=== PATIENT | female | born 1950 | race Asian ===

== ENCOUNTER 2017-07-14 10:38 | Day surgery (SDC) | payer BC ==
[~2017-07-14] VITALS: Ht 157.5 cm; Wt 66.2 kg
[2017-07-14] VITALS (7 sets, daily range): BP systolic 136–168; BP diastolic 69–84
[2017-07-14] MEDS ORDERED: BSS 500ml btl ONE (10:43)
[2017-07-14] MEDS ORDERED: Dexamethasone 4mg/ml vial ONE (10:44)
[2017-07-14] MEDS ORDERED: Kenalog-40 1ml Vial ONE (10:44)
[2017-07-14] MEDS ORDERED: Tetracaine 0.5% Opth 4ml Soln ONE (10:44)
[2017-07-14] MEDS ORDERED: Maxitrol Opth Oint 3.5gm ONE (10:44)
[2017-07-14] MEDS ORDERED: Lidocaine 2% MPF 5ml Vial INJ ONE (10:45)
[2017-07-14] MEDS ORDERED: Goniosol 2.5% Opth Soln - 15ml ONE (10:45)
[2017-07-14] MEDS ORDERED: EPINEPHrine 1mg/1ml Amp ONE (10:45)
[2017-07-14] MEDS ORDERED: BSS 15ml BTL ONE (10:45)
[2017-07-14] MEDS ORDERED: Povidone-Iodine 5% opth solution ONE (10:45)
[2017-07-14] MEDS ORDERED: Bupivacaine 0.75% 30ml vial INJ ONE (10:45)
[2017-07-14] MEDS ORDERED: Phenylephrine 2.5% Op 2ml Soln ONE (11:02)
[2017-07-14] MEDS ORDERED: Cyclopentolate 1% Opth Sol 2ml ONE (11:02)
[2017-07-14] MEDS: Cyclopentolate 1% Opth Sol 2ml RIGHT EYE SCH ×3 (11:08→11:20)
[2017-07-14] MEDS: Phenylephrine 2.5% Op 2ml Soln RIGHT EYE SCH ×3 (11:08→11:20)
[2017-07-14] MEDS ORDERED: ATORVASTATIN CA10 MG ORAL (11:25)
[2017-07-14] MEDS ORDERED: LEVOTHYROXINE125 MCG ORAL (11:25)
[2017-07-14] MEDS ORDERED: AMLODIPINE BESY10 MG ORAL (11:25)
[2017-07-14 11:46] LABS: BASOPHILS % (AUTO) 1.5 % (0.0-2.0); EOSINOPHILS % (AUTO) 2.9 % (0.0-3.0); LYMPHOCYTES % (AUTO) 42.9 % (20.0-45.0); MEAN CORPUSCULAR HEMOGLOBIN 31.8 PG (27.0-31.0); MEAN CORPUSCULAR HGB CONC 32.5 G/DL (32.0-36.0); MEAN CORPUSCULAR VOLUME 98 FL (80-99); MONOCYTES % (AUTO) 7.3 % (1.0-10.0); NEUTROPHILS % (AUTO) 45.4 % (45.0-75.0); PLATELET COUNT 301 K/UL (150-450); RED BLOOD COUNT 4.39 M/UL (4.20-5.40); RED CELL DISTRIBUTION WIDTH 10.4 % (11.6-14.8); WHITE BLOOD COUNT 6.3 K/UL (4.8-10.8)
[2017-07-14 11:55] LABS: ANION GAP 13 (5-15); CALCIUM 9.1 mg/dL (8.6-10.2); CARBON DIOXIDE 25 mEQ/L (20-30); CHLORIDE 105 mEQ/L (98-107); CREATININE 0.7 mg/dL (0.5-0.9); GLOMERULAR FILTRATION RATE > 60 mL/min (>60); HEMOLYSIS 5; POTASSIUM 3.9 mEQ/L (3.4-4.9); SODIUM 143 mEQ/L (135-145)
[2017-07-14] MEDS ORDERED: LR 1000ml 1,000 ML IVLG SCH (12:34)
--- NOTE | 2017-07-14 12:34 | Anethesia Preoperative Eval ---
Anesthesia Pre-op PMH/ROS General Date of Evaluation: Jul 14, 2017 Time of Evaluation: 12:13 Anesthesiologist: Lew ASA Score: ASA 3 Mallampati Score Class I : Soft palate, uvula, fauces, pillars visible Class II: Soft palate, uvula, fauces visible Class III: Soft palate, base of uvula visible Class IV: Only hard plate visible Mallampati Classification: Class II Surgeon: Viri Diagnosis: Detached Retina OD Surgical Procedure: Vitrectomy OD Anesthesia History: none Social History: current smoker Family History: no anesthesia problems Allergies: Coded Allergies: LATEX (Verified Allergy, Severe, blister, 07/14/17) Uncoded Allergies: hair dye (Adverse Reaction, Severe, blister, 07/14/17) Medications: see eMAR Past Medical History Cardiovascular: Reports: HTN, other - HL Pulmonary: Reports: COPD Endocrine: Reports: hypothyroidism HEENT: Reports: cataract (L), cataract (R) PSxH Narrative: HUMERA Anesthesia Pre-op Phys. Exam Physician Exam Last Vital Signs Date Time Temp Pulse Resp B/P (MAP) Pulse Ox O2 Delivery O2 Flow Rate FiO2 07/14/17 11:28 98.6 57 18 139/70 98 Room Air Constitutional: NAD Neurologic: CN 2-12 intact Cardiovascular: RRR Respiratory: CTA Gastrointestinal: S/NT/ND Airway Exam Mallampati Score: Class II MO: limited ROM: limited Teeth: intact Anesthesia Pre-op A/P Labs Hematology Test 07/14/17 11:15 White Blood Count 6.3 K/UL (4.8-10.8) Red Blood Count 4.39 M/UL (4.20-5.40) Hemoglobin 14.0 G/DL (12.0-16.0) Hematocrit 42.9 % (37.0-47.0) Mean Corpuscular Volume 98 FL (80-99) Mean Corpuscular Hemoglobin 31.8 PG (27.0-31.0) H Mean Corpuscular Hemoglobin Concent 32.5 G/DL (32.0-36.0) Red Cell Distribution Width 10.4 % (11.6-14.8) L Platelet Count 301 K/UL (150-450) Mean Platelet Volume 6.0 FL (6.5-10.1) L Neutrophils (%) (Auto) 45.4 % (45.0-75.0) Lymphocytes (%) (Auto) 42.9 % (20.0-45.0) Monocytes (%) (Auto) 7.3 % (1.0-10.0) Eosinophils (%) (Auto) 2.9 % (0.0-3.0) Basophils (%) (Auto) 1.5 % (0.0-2.0) Chemistry Test 07/14/17 11:15 Sodium Level 143 mEQ/L (135-145) Potassium Level 3.9 mEQ/L (3.4-4.9) Chloride Level 105 mEQ/L (98-107) Carbon Dioxide Level 25 mEQ/L (20-30) Anion Gap 13 (5-15) Blood Urea Nitrogen 11 mg/dL (7-23) Creatinine 0.7 mg/dL (0.5-0.9) Estimat Glomerular Filtration Rate > 60 mL/min (>60) Glucose Level 92 mg/dL (74-106) Calcium Level 9.1 mg/dL (8.6-10.2) Risk Assessment & Plan Assessment: ASA 3 Plan: GA Status Change Before Surgery: Damian Akers MD Jul 14, 2017 12:34
--- NOTE | 2017-07-14 12:35 | Immediate Post-Op Evaluation ---
Immediate Post-Op Evalulation Immediate Post-Op Evalulation Procedure: Vitrectomy OD Date of Evaluation: Jul 14, 2017 Time of Evaluation: 14:40 IV Fluids: 600 LR Blood Products: 0 Estimated Blood Loss: 2 Urinary Output: 0 Blood Pressure Systolic: 148 Blood Pressure Diastolic: 73 Pulse Rate: 56 Respiratory Rate: 16 O2 Sat by Pulse Oximetry: 100 Temperature (Fahrenheit): 97.4 Pain Score (1-10): 1 Nausea: No Vomiting: No Complications 0 Patient Status: awake, reacts, patent, none Hydration Status: adequate Damian Reid MD Jul 14, 2017 12:35
--- NOTE | 2017-07-14 12:35 | 48 Hour Post Anesthesia Eval ---
Post Anesthesia Evaluation Procedure: Vitrectomy OD Date of Evaluation: Jul 14, 2017 Time of Evaluation: 16:52 Blood Pressure Systolic: 114 0: 72 Pulse Rate: 76 Respiratory Rate: 18 Temperature (Fahrenheit): 98.2 O2 Sat by Pulse Oximetry: 99 Airway: patent Nausea: No Vomiting: No Pain Intensity: 1 Hydration Status: adequate Cardiopulmonary Status: Stable Mental Status/LOC: patient returned to baseline Follow-up Care/Observations: 0 Post-Anesthesia Complications: 0 Follow-up care needed: ready to discharge Damian Reid MD Jul 14, 2017 12:35
[2017-07-14] MEDS ORDERED: Atropine Inj 1mg/10ml Syr IV PRN (12:45)
[2017-07-14] MEDS ORDERED: Ketorolac 30mg Inj IV PRN (12:45)
[2017-07-14] MEDS ORDERED: Norco 5mg/325mg tab ORAL PRN (12:45)
[2017-07-14] MEDS ORDERED: DiphenhydrAMINE 50mg/ml Inj IVP PRN (12:45)
[2017-07-14] MEDS ORDERED: LORazepam Inj 2mg/ml 1ml IV PRN (12:45)
[2017-07-14] MEDS ORDERED: Ketorolac 60mg Inj IV PRN (12:45)
[2017-07-14] MEDS ORDERED: oxyCODONE HCL/Acetaminophen 5/325mg ORAL PRN (12:45)
[2017-07-14] MEDS ORDERED: Meperidine 25mg/0.5ml Inj (FOR RIGORS ONLY) IV PRN (12:45)
[2017-07-14] MEDS ORDERED: Hydromorphone 0.5mg/0.5ml inj IVP PRN (12:45)
[2017-07-14] MEDS ORDERED: fentaNYL 100 mcg/2 mL IV PRN (12:45)
[2017-07-14] MEDS ORDERED: Norco 7.5mg/325mg tab ORAL PRN (12:45)
[2017-07-14] MEDS ORDERED: Metoclopramide 10mg/2ml Inj IVP PRN (12:45)
[2017-07-14] MEDS ORDERED: Midazolam 2mg/2ml Inj IVP PRN (12:45)
[2017-07-14] MEDS ORDERED: Sterile Water Irrig 1000ml IRRIG ONE (13:00)
[2017-07-14] MEDS ORDERED: Alfentanil 2ml Inj ONE (13:00)
[2017-07-14] MEDS ORDERED: Lidocaine 1% MPF 10mg/ml 5ml ONE (13:00)
[2017-07-14] MEDS ORDERED: Midazolam 2mg/2ml Inj ONE (13:00)
[2017-07-14] MEDS ORDERED: LR 1000ml ONE (13:00)
[2017-07-14] MEDS ORDERED: NS Irrig 1000ml ONE (13:00)
[2017-07-14] MEDS ORDERED: Propofol 200mg/20ml IV ONE (13:00)
--- NOTE | 2017-07-14 13:14 | Pre-Procedure Note/Attestation ---
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 I attest that, if there was a reasonable possibility of needing a blood transfusion, the patient (or the patient's legal new accounts banking representative) was given the [facility] standardized written summary, pursuant to the Mychal Josh Blood Safety Act ([place] Health and Safety Code # 1645, as amended). I attest that I re-evaluated the patient just prior to the surgery and that there has been no change in the patient's H&P, except as documented below: MICHEAL LOZANO M.D. Jul 14, 2017 13:14
[2017-07-14] MEDS ORDERED: Acetylcholine Injection (OR) ONE (13:45)
[2017-07-14] MEDS ORDERED: Sodium Hyaluronate 10 mg/ml 0.85ml ONE (13:58)
--- NOTE | 2017-07-14 14:29 | Brief Operative Note ---
Immediate Post Operative Note Operative Note Chief Complaint: blurred vision Pre-op Diagnosis: macular hole associated retinal detachment right eye Procedure: 23G PPV/MP/EL/15%C3F8 right eye Post-op Diagnosis: macular hole associated retinal detachment right eye Post-op Diagnosis: same as pre-op Findings: consistent w/pre-op dx studies Surgeon: Viri Anesthesia: local Specimen: yes Complications: none Condition: stable Fluids: <200cc Estimated Blood Loss: none Drains: none Implant(s) used?: No MICHEAL LOZANO M.D. Jul 14, 2017 14:29
--- NOTE | 2017-07-14 22:30 | Operative Note - Dictated ---
DATE OF OPERATION: 07/14/2017 SURGEON: Krzysztof Mereidth M.D. PREOPERATIVE DIAGNOSIS: Retinal detachment, right eye. POSTOPERATIVE DIAGNOSIS: Retinal detachment, right eye. Name of Operation: A 23-gauge pars plana vitrectomy, membrane peel, endolaser, and 15% C3F8 gas, right eye. ANESTHESIA: Local. BLOOD LOSS: None. COMPLICATIONS: None. Indications: The patient is a 67-year-old female with a history of blurred vision in her right eye. She presents with a macular hole associated with retinal detachment and sterile inflammation following intravitreal steroid injection. The findings were discussed with the patient as well as the risks, benefits, and alternatives to the above-named procedure and the patient wishes to proceed with surgery. The patient understands the risks include, but are not limited to, loss of vision and loss of the eye. Informed consent was obtained. Description of The Procedure: On the day of the procedure, the right eye was noted to be the operative eye and marked. The patient received three sets of the standard preoperative eye drops in the holding area. The patient was then brought to the operating room with appropriate anesthesia monitors were placed. The right eye was again identified as the operative eye during time-out. The nonoperative eye was patched and shielded. The operative eye then received a retrobulbar block consisting of 1:1 mixture of 2% lidocaine without epinephrine and 0.75% bupivacaine for a total of 5 mL. Anesthesia and akinesia were noted to have been obtained. The operative eye was then prepped and draped in the usual sterile ophthalmic fashion. A lid speculum was placed in the operative eye. A 23-gauge cannulas were placed with infusion located inferotemporally. A standard three-port pars plana vitrectomy was then performed. The retina was inspected and there was a retinal detachment associated with two eccentric macular holes. Please note that prior to the vitrectomy, a vitreous sample was taken and sent for culture and Gram-stain. Furthermore, a paracentesis had been made at the 11 o'clock meridian and the anterior chamber was washed out with balanced salt solution on a cannula. Continuing on with vitrectomy, an air-fluid exchange was then performed and the subretinal fluid was drained through the existing retinal breaks. Endolaser was applied to the retinal breaks. A 15% C3F8 gas was then infused into the eye. The 23-gauge cannulas were then removed. The sclerotomies were sutured using 7-0 Vicryl. The paracentesis was hydrated using balanced salt solution on a cannula. The wounds were checked for leakage and found to be watertight. Intraocular pressure was palpated and found to be within normal limits. The patient then received subconjunctival injections of vancomycin and dexamethasone. The lid speculum and drapes were then removed. Maxitrol ointment and atropine eye drops were applied to the eye and the eye was patched and shielded. The patient tolerated the procedure well and was returned to the postoperative care area in good condition. Krzysztof Meredith M.D. DR: ANGELLA JOB#: [id number] CC:
--- NOTE | 2017-07-24 02:13 | Cardiology Report ---
APPROVED REPORT EKG Measurement Heart [id number] Sinus bradycardia Otherwise normal ECG
== END 2017-07-14 14:35 | disposition home or self-care (01) ==
LOC: SUR 10:38
DX: H33.21 Serous retinal detachment, right eye (principal); F17.200 Nicotine dependence, unspecified, uncomplicated; I10 Essential (primary) hypertension; J44.9 Chronic obstructive pulmonary disease, unspecified; Z91.040 Latex allergy status; Z91.09 Other allergy status, other than to drugs and biological substances
CPT/HCPCS: 36415; 67040; 80048; 85025; 87070; 87075; 87205; 93005; J0171; J0690; J1100; J2250; J2704; J3490; J7120; 94003; 94150

== ENCOUNTER 2017-08-04 10:56 | Day surgery (SDC) | payer BC ==
[~2017-08-04] VITALS: Ht 157.5 cm; Wt 65.8 kg
[2017-08-04] VITALS (9 sets, daily range): BP systolic 131–152; BP diastolic 55–74
[~2017-08-04 10:56] MED LIST: AMLODIPINE BESY10 MG ORAL; ATORVASTATIN CA10 MG ORAL; LEVOTHYROXINE125 MCG ORAL
[2017-08-04] MEDS ORDERED: Cyclopentolate 1% Opth Sol 2ml ONE (11:02)
[2017-08-04] MEDS ORDERED: Phenylephrine 2.5% Op 2ml Soln ONE (11:02)
[2017-08-04] MEDS: Cyclopentolate 1% Opth Sol 2ml RIGHT EYE SCH ×3 (11:26→11:46)
[2017-08-04] MEDS: Phenylephrine 2.5% Op 2ml Soln RIGHT EYE SCH ×3 (11:26→11:46)
[2017-08-04] MEDS ORDERED: ASPIR 8181 MG ORAL (11:41)
[2017-08-04] MEDS ORDERED: Tetracaine 0.5% Opth 4ml Soln ONE (13:19)
[2017-08-04] MEDS ORDERED: Dexamethasone 4mg/ml vial ONE (13:19)
[2017-08-04] MEDS ORDERED: Kenalog-40 1ml Vial ONE (13:19)
[2017-08-04] MEDS ORDERED: BSS 500ml btl ONE (13:19)
[2017-08-04] MEDS ORDERED: Pred Forte 1% Opth Susp 1ml ONE (13:19)
[2017-08-04] MEDS ORDERED: Lidocaine 2% MPF 5ml Vial INJ ONE (13:20)
[2017-08-04] MEDS ORDERED: EPINEPHrine 1mg/1ml Amp ONE (13:20)
[2017-08-04] MEDS ORDERED: Maxitrol Opth Susp 5ml ONE (13:20)
[2017-08-04] MEDS ORDERED: Midazolam 2mg/2ml Inj ONE (13:20)
[2017-08-04] MEDS ORDERED: LR 1000ml ONE (13:20)
[2017-08-04] MEDS ORDERED: fentaNYL 100 mcg/2 mL IV ONE (13:20)
[2017-08-04] MEDS ORDERED: Povidone-Iodine 5% opth solution ONE (13:20)
[2017-08-04] MEDS ORDERED: Propofol 200mg/20ml IV ONE (13:20)
[2017-08-04] MEDS ORDERED: Goniosol 2.5% Opth Soln - 15ml ONE ×2 (13:21→14:45)
[2017-08-04] MEDS ORDERED: Bupivacaine 0.75% 30ml vial INJ ONE (13:21)
[2017-08-04] MEDS ORDERED: BSS 15ml BTL ONE (13:21)
[2017-08-04] MEDS ORDERED: Carbachol 0.01% Op Soln 1.5ml vial ONE (13:28)
--- NOTE | 2017-08-04 13:28 | Pre-Procedure Note/Attestation ---
Pre-Procedure Note/Attestation Complete Prior to Procedure Planned Procedure: right Procedure Narrative: 23G PPV/EL/SO right eye Indications for Procedure Pre-Operative Diagnosis: retinal detachment right eye Attestation I attest that I discussed the nature of the procedure; its benefits; risks and complications; and alternatives (and the risks and benefits of such alternatives ), prior to the procedure, with the patient (or the patient's legal corporate sales representative). I attest that, if there was a reasonable possibility of needing a blood transfusion, the patient (or the patient's legal corporate sales representative) was given the [facility] standardized written summary, pursuant to the Mychal Clinchco Blood Safety Act ([place] Health and Safety Code # 1645, as amended). I attest that I re-evaluated the patient just prior to the surgery and that there has been no change in the patient's H&P, except as documented below: MICHEAL LOZANO M.D. Aug 04, 2017 13:28
[2017-08-04] MEDS ORDERED: Sodium Hyaluronate 10 mg/ml 0.85ml ONE (13:29)
[2017-08-04] MEDS ORDERED: Acetylcholine Injection (OR) ONE (13:29)
--- NOTE | 2017-08-04 13:49 | Anethesia Preoperative Eval ---
Anesthesia Pre-op PMH/ROS General Date of Evaluation: Aug 04, 2017 Time of Evaluation: 13:20 Anesthesiologist: Maggie ASA Score: ASA 2 Mallampati Score Class I : Soft palate, uvula, fauces, pillars visible Class II: Soft palate, uvula, fauces visible Class III: Soft palate, base of uvula visible Class IV: Only hard plate visible Mallampati Classification: Class II Surgeon: Viri Diagnosis: Vitreous Surgical Procedure: Right eye vitrectomy endolaser membrane peel, silicone oil Anesthesia History: none Family History: no anesthesia problems Allergies: Coded Allergies: LATEX (Verified Allergy, Severe, blister, 07/14/17) Uncoded Allergies: hair dye (Adverse Reaction, Severe, blister, 07/14/17) Medications: see eMAR Past Medical History Cardiovascular: Reports: HTN Pulmonary: Denies: asthma, COPD, STU, other Gastrointestinal/Genitourinary: Denies: GERD, CRI, ESRD, other Neurologic/Psychiatric: Denies: dementia, CVA, depression/anxiety, TIA, other Endocrine: Reports: hypothyroidism, Denies: DM, steroids, other HEENT: Denies: cataract (L), cataract (R), glaucoma, TANACROSS (L), TANACROSS (R), other Hematology/Immune: Denies: anemia, DVT, bleeding disorder, other Musculoskeletal/Integumentary: Denies: OA, RA, DJD, DDD, edema, other Anesthesia Pre-op Phys. Exam Physician Exam Last Vital Signs Date Time Temp Pulse Resp B/P (MAP) Pulse Ox O2 Delivery O2 Flow Rate FiO2 08/04/17 11:31 98.0 68 20 131/69 97 Room Air Constitutional: NAD Neurologic: CN 2-12 intact Cardiovascular: RRR Respiratory: CTA Gastrointestinal: S/NT/ND Airway Exam Mallampati Score: Class II MO: full ROM: full Teeth: intact Dentures: no upper, no lower Anesthesia Pre-op A/P Studies Pre-op Studies: EKG - NSB 54BPM Risk Assessment & Plan Assessment: A+Ox3 Plan: plan discussed with surgeon MAC Status Change Before Surgery: No Pre-Antibiotics Given Within 1 Hr of Incision: No Merari Serrano CRNA Aug 04, 2017 13:49
--- NOTE | 2017-08-04 13:50 | 48 Hour Post Anesthesia Eval ---
Post Anesthesia Evaluation Date of Evaluation: Aug 04, 2017 Time of Evaluation: 14:41 Blood Pressure Systolic: 134 0: 68 Pulse Rate: 60 Respiratory Rate: 20 Temperature (Fahrenheit): 97.4 O2 Sat by Pulse Oximetry: 100 Airway: patent Nausea: No Vomiting: No Pain Intensity: 0 Hydration Status: adequate Mental Status/LOC: patient returned to baseline Follow-up care needed: patient intructions given Merari Serrano CRNA Aug 04, 2017 13:50
--- NOTE | 2017-08-04 13:50 | Immediate Post-Op Evaluation ---
Immediate Post-Op Evalulation Immediate Post-Op Evalulation Date of Evaluation: Aug 04, 2017 Time of Evaluation: 13:20 IV Fluids: LR Blood Products: 0 Estimated Blood Loss: 0 Urinary Output: 0 Blood Pressure Systolic: 134 Blood Pressure Diastolic: 68 Pulse Rate: 62 Respiratory Rate: 22 O2 Sat by Pulse Oximetry: 99 Temperature (Fahrenheit): 97.5 Pain Score (1-10): 0 Nausea: No Vomiting: No Patient Status: awake, reacts Hydration Status: adequate Given Within 1 Hr of Incision: No Merari Serrano CRNA Aug 04, 2017 13:50
[2017-08-04] MEDS ORDERED: Maxitrol Opth Oint 3.5gm ONE (13:51)
--- NOTE | 2017-08-04 14:31 | Brief Operative Note ---
Immediate Post Operative Note Operative Note Chief Complaint: blurred vision Pre-op Diagnosis: retinal detachment right eye Procedure: 23G PPV/EL/SO right eye Post-op Diagnosis: same Post-op Diagnosis: same as pre-op Findings: consistent w/pre-op dx studies Surgeon: Viri Anesthesia: local Specimen: none Complications: none Fluids: 250cc Estimated Blood Loss: none Drains: none Implant(s) used?: Yes MICHEAL LOZANO M.D. Aug 04, 2017 14:31
[2017-08-04] MEDS ORDERED: Norco 5mg/325mg tab ORAL PRN (14:45)
--- NOTE | 2017-08-04 21:30 | Operative Note - Dictated ---
DATE OF OPERATION: 08/04/2017 SURGEON: Krzysztof Meredith M.D. PREOPERATIVE DIAGNOSIS: Retinal detachment, right eye. POSTOPERATIVE DIAGNOSIS: Retinal detachment, right eye. NAME OF OPERATION: A 23-gauge pars plana vitrectomy, endolaser, and silicone oil, right eye. ANESTHESIA: Local. BLOOD LOSS: None. COMPLICATIONS: None. INDICATIONS: The patient is a 67-year-old female with a history of retinal detachment repair. 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 The findings were discussed with the patient as well as the risks, benefits, and alternatives to the above-named procedure, and the patient wishes to proceed with surgery. The patient understands the risks include, but are not limited to, loss of vision and loss of the eye. Informed consent was obtained. DESCRIPTION OF PROCEDURE: On the day of the procedure, the right eye was noted to be the operative eye and marked. The patient received three sets of the standard preoperative eye drops in the holding area. The patient was then brought to the operating room with appropriate anesthesia monitors were placed. The right eye was again identified as the operative eye and during time-out the nonoperative eye was patched and shielded. The operative eye then received a retrobulbar block consisting of a 1:1 mixture of 2% lidocaine without epinephrine and 0.75% bupivacaine for a total of 5 mL. Anesthesia and akinesia were noted to have been obtained. The operative eye was then prepped and draped in the usual sterile ophthalmic fashion. A lid speculum was placed in the operative eye. A 22-gauge cannulas were placed with infusion located inferotemporally. The gas and the vitreous was removed with the vitreous cutter. The retina was inspected. The previous macular holes were flat, but there was new inferior retinal break present. This was marked with endodiathermy. A nasal retinotomy was also marked using the intraocular cautery. A paracentesis was made at the 12 o'clock meridian and Healon was used to fill the anterior chamber to prevent gas entry anteriorly. An air-fluid exchange was then performed and the subretinal fluid was drained through the retinotomy. A Miochol was then used to constrict the pupil and balanced salt solution on a cannula was used to remove any additional Healon from the anterior chamber. The paracentesis was hydrated. Endolaser was applied to the retinal hole and to the retinotomy in a 360-degree barricade fashion. An inferior peripheral iridectomy was made with the vitreous cutter, 1000 centistokes silicone oil was then infused into the eye. The 22-gauge cannulas were then removed. The sclerotomies were sutured using 7-0 Vicryl. The wounds were checked for leakage and found to be water tight. The intraocular pressure was palpated and found to be within normal limits. The patient then received subconjunctival injections of vancomycin and dexamethasone. The lid speculum and drapes were then removed. Maxitrol ointment was applied to the eye and the eye was patched and shielded. The patient tolerated the procedure well and was returned to the postoperative care area in good condition. Krzysztof Meredith M.D. DR: SUDHEER JOB#: [id number] CC:
== END 2017-08-04 15:45 | disposition home or self-care (01) ==
LOC: SUR 10:56
DX: H33.21 Serous retinal detachment, right eye (principal); I10 Essential (primary) hypertension; E03.9 Hypothyroidism, unspecified; Z91.040 Latex allergy status; Z88.8 Allergy status to other drugs, medicaments and biological substances
CPT/HCPCS: 67040; J0171; J0690; J1100; J2250; J2704; J3010; J3490; J7120; 94003; 94150

== ENCOUNTER 2018-06-01 09:47 | Day surgery (SDC) | payer BC ==
[~2018-06-01] VITALS: Ht 157.5 cm; Wt 62.6 kg
[2018-06-01] VITALS (7 sets, daily range): BP systolic 114–139; BP diastolic 55–78
[~2018-06-01 09:47] MED LIST changes: +ASPIR 8181 MG ORAL
[2018-06-01] MEDS ORDERED: Phenylephrine 2.5% Op 2ml Soln ONE (10:07)
[2018-06-01] MEDS ORDERED: Cyclopentolate 1% Opth Sol 2ml ONE (10:07)
[2018-06-01] MEDS: Cyclopentolate 1% Opth Sol 2ml RIGHT EYE SCH ×3 (10:35→10:45)
[2018-06-01] MEDS: Phenylephrine 2.5% Op 2ml Soln RIGHT EYE SCH ×3 (10:36→10:45)
[2018-06-01] MEDS ORDERED: Goniosol 2.5% Opth Soln - 15ml ONE (11:29)
[2018-06-01] MEDS ORDERED: EPINEPHrine 1mg/1ml Amp ONE (11:29)
[2018-06-01] MEDS ORDERED: Kenalog-40 1ml Vial ONE (11:29)
[2018-06-01] MEDS ORDERED: Lidocaine 2% MPF 5ml Vial INJ ONE (11:29)
[2018-06-01] MEDS ORDERED: BSS 500ml btl ONE (11:30)
[2018-06-01] MEDS ORDERED: Dexamethasone 4mg/ml vial ONE (11:30)
[2018-06-01] MEDS ORDERED: BSS 15ml BTL ONE (11:31)
[2018-06-01] MEDS ORDERED: Bupivacaine 0.75% 30ml vial INJ ONE (11:31)
[2018-06-01] MEDS ORDERED: Tetracaine 0.5% Opth 4ml Soln ONE (11:31)
[2018-06-01] MEDS ORDERED: Povidone-Iodine 5% opth solution ONE (11:31)
[2018-06-01] MEDS ORDERED: Maxitrol Opth Oint 3.5gm ONE (11:52)
[2018-06-01] MEDS ORDERED: Neosporin Oph Soln 5ml Btl ONE (12:14)
[2018-06-01] MEDS ORDERED: Indocyanine Green 25mg Inj INJ ONE (12:15)
--- NOTE | 2018-06-01 12:56 | Pre-Procedure Note/Attestation ---
Pre-Procedure Note/Attestation Complete Prior to Procedure Planned Procedure: right Procedure Narrative: 23G PPV/SO removal/EL/Afx right eye Indications for Procedure Pre-Operative Diagnosis: tractional retinal detachment Attestation I attest that I discussed the nature of the procedure; its benefits; risks and complications; and alternatives (and the risks and benefits of such alternatives ), prior to the procedure, with the patient (or the patient's legal telecommunications sales representative). I attest that, if there was a reasonable possibility of needing a blood transfusion, the patient (or the patient's legal telecommunications sales representative) was given the [facility] standardized written summary, pursuant to the Mychal Josh Blood Safety Act ([place] Health and Safety Code # 1645, as amended). I attest that I re-evaluated the patient just prior to the surgery and that there has been no change in the patient's H&P, except as documented below: MICHEAL LOZANO M.D. Jun 01, 2018 12:56
[2018-06-01] MEDS ORDERED: Midazolam 2mg/2ml Inj ONE ×2 (12:57→13:13)
[2018-06-01] MEDS ORDERED: fentaNYL 100 mcg/2 mL IV ONE (12:57)
[2018-06-01] MEDS ORDERED: NS Irrig 1000ml ONE (13:00)
[2018-06-01] MEDS ORDERED: Sterile Water Irrig 1000ml IRRIG ONE (13:00)
[2018-06-01] MEDS ORDERED: LR 1000ml ONE (13:00)
[2018-06-01] MEDS ORDERED: LR 1000ml 1,000 ML IVLG SCH (13:25)
--- NOTE | 2018-06-01 13:25 | Anethesia Preoperative Eval ---
Anesthesia Pre-op PMH/ROS General Date of Evaluation: Jun 01, 2018 Time of Evaluation: 11:55 Anesthesiologist: ASA Score: ASA 3 Mallampati Score Class I : Soft palate, uvula, fauces, pillars visible Class II: Soft palate, uvula, fauces visible Class III: Soft palate, base of uvula visible Class IV: Only hard plate visible Mallampati Classification: Class II Surgeon: tess Diagnosis: retinal detachment right eye Surgical Procedure: vitrectomy right eye Anesthesia History: none Family History: no anesthesia problems Allergies: Coded Allergies: LATEX (Verified Allergy, Severe, blister, 07/14/17) Uncoded Allergies: hair dye (Adverse Reaction, Severe, blister, 07/14/17) Medications: see eMAR Past Medical History Cardiovascular: Reports: HTN; Denies: CAD, DC, valve dz, arrhythmia, other Pulmonary: Denies: asthma, COPD, STU, other Gastrointestinal/Genitourinary: Denies: GERD, CRI, ESRD, other Neurologic/Psychiatric: Denies: dementia, CVA, depression/anxiety, TIA, other Endocrine: Reports: hypothyroidism; Denies: DM, steroids, other HEENT: Reports: cataract (L), cataract (R), other - retinal detachment Hematology/Immune: Denies: anemia, DVT, bleeding disorder, other Musculoskeletal/Integumentary: Denies: OA, RA, DJD, DDD, edema, other Anesthesia Pre-op Phys. Exam Physician Exam Last Vital Signs Date Time Temp Pulse Resp B/P (MAP) Pulse Ox O2 Delivery O2 Flow Rate FiO2 06/01/18 10:30 97.7 62 20 115/58 (77) 97 97.7 06/01/18 10:17 Room Air Constitutional: NAD Cardiovascular: RRR Respiratory: CTA Gastrointestinal: S/NT/ND Airway Exam Mallampati Score: Class II MO: full ROM: full Dentures: upper, lower Anesthesia Pre-op A/P Risk Assessment & Plan Assessment: asa 3 Plan: mac Status Change Before Surgery: No Pre-Antibiotics Drug: none Marleen Vilchis M.D. Jun 01, 2018 13:25
--- NOTE | 2018-06-01 13:28 | Immediate Post-Op Evaluation ---
Immediate Post-Op Evalulation Immediate Post-Op Evalulation Procedure: vitrectomy right eye Date of Evaluation: Jun 01, 2018 Time of Evaluation: 14:00 IV Fluids: lr 100mk Blood Products: 0 Estimated Blood Loss: 0 Urinary Output: 0 Blood Pressure Systolic: 123 Blood Pressure Diastolic: 60 Pulse Rate: 60 Respiratory Rate: 19 O2 Sat by Pulse Oximetry: 100 Temperature (Fahrenheit): 97.1 Pain Score (1-10): 0 Nausea: No Vomiting: No Complications none Patient Status: awake, patent, none Hydration Status: adequate Drug: none Marleen Vilchis M.D. Jun 01, 2018 13:28
--- NOTE | 2018-06-01 13:29 | 48 Hour Post Anesthesia Eval ---
Post Anesthesia Evaluation Procedure: vitrectomy right eye Date of Evaluation: Jun 01, 2018 Time of Evaluation: 14:22 Blood Pressure Systolic: 112 0: 45 Pulse Rate: 60 Respiratory Rate: 17 Temperature (Fahrenheit): 97.1 O2 Sat by Pulse Oximetry: 98 Airway: patent Nausea: No Vomiting: No Pain Intensity: 0 Hydration Status: adequate Mental Status/LOC: patient returned to baseline Post-Anesthesia Complications: none Follow-up care needed: ready to discharge Marleen Vilchis M.D. Jun 01, 2018 13:29
[2018-06-01] MEDS ORDERED: fentaNYL 100 mcg/2 mL IV PRN (13:30)
[2018-06-01] MEDS ORDERED: DiphenhydrAMINE 50mg/ml Inj IVP PRN (13:30)
[2018-06-01] MEDS ORDERED: Midazolam 2mg/2ml Inj IVP PRN (13:30)
--- NOTE | 2018-06-01 14:07 | Brief Operative Note ---
Immediate Post Operative Note Operative Note Chief Complaint: blurred vision left eye Pre-op Diagnosis: tractional retinal detachment Procedure: 23G PPV/SO removal/EL/15%C3F8 left eye Post-op Diagnosis: tractional retinal detachment Post-op Diagnosis: same as pre-op Findings: consistent w/pre-op dx studies Surgeon: Krzysztof Lozano Anesthesia: local Specimen: none Complications: none Condition: stable Fluids: <500cc Estimated Blood Loss: none Drains: none Implant(s) used?: No KRZYSZTOF LOZANO M.D. Jun 01, 2018 14:07
--- NOTE | 2018-06-01 20:45 | Operative Note - Dictated ---
DATE OF OPERATION: 06/01/2018 SURGEON: Krzysztof Meredith M.D. PREOPERATIVE DIAGNOSIS: Tractional retinal detachment, right eye. POSTOPERATIVE DIAGNOSIS: Tractional retinal detachment, right eye. NAME OF OPERATION: A 23-gauge pars plana vitrectomy, silicone oil removal, endolaser, and 15% C3F8 gas, right eye. ANESTHESIA: Local. BLOOD LOSS: None. COMPLICATIONS: None. INDICATIONS: The patient is a 68-year-old female with a history of tractional retinal detachment, right eye. The retinal has remained stable under the silicone oil. The patient requested silicone oil removal for visual rehabilitation. The findings were discussed with the patient as well as risks, benefits, and alternatives to the above-named procedure. The patient wishes to proceed with surgery. The patient understands that the risks include, but are not limited to, loss of vision and loss of the eye. Informed consent was obtained. DESCRIPTION OF THE PROCEDURE: On the day of the surgery, the right eye was noted to be the operative eye and marked. The patient received 3 sets of the standard preoperative eye drops in the holding area. The patient was then brought to the operating room with appropriate anesthesia monitors were placed. The right eye was then identified as the operative eye during time-out. The nonoperative eye was patched and shielded. The operative eye then received a retrobulbar block consisting of a one-to-one mixture of 2% lidocaine without epinephrine and 0.75% bupivacaine for a total of 5 mL. Anesthesia and akinesia were noted to have been obtained. The operative eye was then prepped and draped in the usual sterile fashion. A lid speculum was placed in the operative eye. A 23-gauge cannulas were placed with infusion located inferotemporally. A standard 3 port pars plana vitrectomy was then performed. The silicone oil was then removed. Endolaser was applied to the previous laser barricade. The three air-fluid exchanges were then performed, any silicone oil was rinsed from the anterior chamber using balanced salt solution on a cannula after a paracentesis was made at the 12 o'clock meridian with a super sharp blade. A 15% C3F8 gas was then infused into the eye. The 23-gauge cannulas were then removed. The sclerotomies were sutured using 7-0 Vicryl and the paracentesis was hydrated. The wounds were checked for leakage and found to be watertight. An intraocular pressure was palpated and found to be within normal limits. The patient then received subconjunctival injections of vancomycin and dexamethasone. The lid speculum and drapes were then removed. Maxitrol ointment and atropine eye drops were applied to the eye and the eye was patched and shielded. The patient tolerated the procedure well and was returned to the postoperative care area in good condition. Krzysztof Meredith M.D. DR: BRITTANY JOB#: [id number] CC: [id number]
[2018-06-01] MEDS ORDERED: Norco 5mg/325mg tab ORAL PRN (21:31)
== END 2018-06-01 15:35 | disposition home or self-care (01) ==
LOC: SUR 09:47
DX: H33.41 Traction detachment of retina, right eye (principal); E78.00 Pure hypercholesterolemia, unspecified; E03.9 Hypothyroidism, unspecified; I10 Essential (primary) hypertension; G89.29 Other chronic pain; M54.5 Low back pain; F17.210 Nicotine dependence, cigarettes, uncomplicated; Z79.82 Long term (current) use of aspirin; Z90.710 Acquired absence of both cervix and uterus; Z90.722 Acquired absence of ovaries, bilateral; Z90.79 Acquired absence of other genital organ(s); Z91.040 Latex allergy status
CPT/HCPCS: 67121; J0171; J0690; J1100; J2250; J3490; J7120; 94003; 94150